=== PATIENT | male | born 1980 | race Caucasian/White ===

== ENCOUNTER → 2016-06-20 | Outpatient (CLI) | payer OTHER ==
--- NOTE | 2016-06-21 19:04 | DI ---
CT SCAN OF THE RIGHT WRIST, 06/20/2016 3:36 PM : Clinical History: Radial styloid fracture. Scans are obtained from the distal radius and ulna to the midshaft of the metacarpal bones without IV contrast. Sagittal and coronal reformatted images are also generated. The carpal bones are unremarkable except for abnormal a prominent widening between the scaphoid and l unate bones suggesting a tear or laxity of the scapholunate ligament. There is a longitudinally orien kim linear fracture through the radial styloid and this comprises approximately 15% of the total james cular surface. There is no "dye punch" fracture component, although there is a small second fracture component occupying less than 1% of the total articular surface and this is located between the radia l styloid and the remainder of the articular surface of the radius. The fracture courses through the scaphoid fossa of the distal radius. There is no step off visualized. READIN. There is a fracture through the radial styloid associated with 50% of the total articular surface . There is no step-off of the articular surfaces and there is no " punch" fracture component. Ther e is a very small fracture fragment on the articular surface lying between the styloid and the remain louis of the articular surface of the distal radius. This small fracture fragment comprises less than 1 % of the total articular surface. 2. There is widening of the space between the scaphoid and lunate bones and this is suggestive of ei ther laxity or a tear of the scapholunate ligament. 3D RENDERING OF CT SCANS OF THE RIGHT WRIST JOINT, 06/20/2016 3:36 PM: Clinical History: See above. Prior or Related Exam: None. The original raw data from the CT scans of this extremity are ported to the off-line [employer] on for 3D rendering of the bony structures. The 3-D rendering images are produced without the carpal bones or metacarpal bones. The ulna is josefa l. The radial styloid fracture component is well demonstrated along with the very small dorsally situ ated fracture fragment lying between the radial styloid and the remainder of the articular surface. READIN-D rendering of the bony surfaces demonstrate the radial styloid fracture nicely along with a small additional fracture component. There is no step-off of the articular surface and there is no " pun ch" fracture component.
== END ==
LOC: CT 15:30
PROVIDERS: ATTEND Physician Assistant
DX: S52.511A Displaced fracture of right radial styloid process, initial encounter for closed fracture (principal); V98.8XXA Other specified transport accidents, initial encounter; Y92.481 Parking lot as the place of occurrence of the external cause; Y93.H3 Activity, building and construction; Y99.0 Civilian activity done for income or pay
CPT/HCPCS: 73200; 76377

== ENCOUNTER 2016-06-27 08:46 | Day surgery (SDC) | payer OTHER ==
[2016-06-27] MEDS ORDERED: LIDOCAINE W/ SODIUM BICARB 0.5 ML SYR ONE (14:12)
[2016-06-27] MEDS ORDERED: Lactated Ringers 1,000 ML PRIMARY IV ONE (14:12)
[2016-06-27] MEDS ORDERED: ceFAZolin Inj 2gm (Premix) 50 ML IV ONE (14:12)
[2016-06-27] MEDS ORDERED: LIDOCAINE 2%/ EPI 1:200,000 - 20 ML VIAL ONE (16:52)
[2016-06-27] MEDS ORDERED: MIDAZOLAM 5 MG/1 ML ONE (16:52)
[2016-06-27] MEDS ORDERED: DEXAMETHASONE SOD PHOSPHATE 4 MG/1 ML VIAL ONE (16:52)
[2016-06-27] MEDS ORDERED: fentaNYL Inj 100 MCG/2 ML VIAL ONE (16:52)
[2016-06-27] MEDS ORDERED: MEPIVACAINE HCL/PF 20 MG/1 ML IV ONE (16:52)
--- NOTE | 2016-06-27 17:17 | CRNA.PROCE ---
Nerve Block Documentation - - Type of Nerve Block Used: Right Axillary Block Position for Nerve Block: Supine Moniters Used During Block: EKG, SPO2, NIBP Oxygen Sumpplented: Yes Sedation Used - Enter Amount in Comment Field: Midazolam (mg): Yes (3), Fentanyl (mcg): Yes (50) Skin Prep Used: ChloroPrep Draped: No Technique: Nerve Stimulator Nerve Block Needle Used: 40 mm ProBlk II Stimulation Hz: 2 Stimulation Staring mA: 1.2 Stimulation Ending mA: 0.6 Local Anesthetic - Enter Amt in Comment Field: 2 % Xylocaine with Epinephrine 1: 200,000 (mL): Yes (20ml), 2 % Mepivacaine (mL): Yes (20ml) Additives to Nerve Blocks: Dexamethasone (mL): Yes (8mg(2ml))
[2016-06-27] MEDS ORDERED: Sodium Chloride 0.9% vial 10 ML ONE (19:08)
[2016-06-27] MEDS ORDERED: BACITRACIN 50,000 UNIT VIAL IRRIG ONE (19:08)
[2016-06-27] MEDS ORDERED: KETAMINE 100 MG/1 ML - 5 ML ONE (19:32)
[2016-06-27] MEDS ORDERED: BUPivacaine Liposome/PF (Exparel) Inj 20ml vial INFIL ONE (19:40)
[2016-06-27] MEDS ORDERED: CALCIUM CARBONATE 500 MG (TUMS) CHEWABLE TABLET PO PRN (20:54)
[2016-06-27] MEDS ORDERED: ACETAMINOPHEN 325 MG TABLET PO PRN (20:54)
[2016-06-27] MEDS ORDERED: Prochlorperazine Tab 10 MG TAB PO PRN (20:54)
[2016-06-27] MEDS ORDERED: diphenhydrAMINE 25 MG CAPSULE PO PRN (20:54)
[2016-06-27] MEDS ORDERED: HYDROcodone-APAP 7.5 MG-325 MG TABLET PO PRN (20:54)
[2016-06-27] MEDS ORDERED: BISACODYL 10 MG SUPPOSITORY RECTAL PRN (20:54)
[2016-06-27] MEDS ORDERED: Ondansetron ODT Tab 8 MG TAB PO PRN (20:54)
[2016-06-27] MEDS ORDERED: ONDANSETRON 4 MG/2 ML VIAL IVP PRN (20:54)
[2016-06-27] MEDS ORDERED: BISACODYL 5 MG TABLET PO PRN (20:54)
[2016-06-27] MEDS ORDERED: MORPHINE SULFATE 2 MG/1 ML IVP PRN (20:54)
[2016-06-27] MEDS ORDERED: IBUPROFEN 400 MG TABLET PO PRN (20:54)
[2016-06-27] MEDS ORDERED: MAG HYDROX/AL HYDROX/SIMETH 30 ML SUSP PO PRN (20:54)
[2016-06-27] MEDS ORDERED: NORMAL SALINE 10 ML SYRINGE FLUSH IVP PRN (20:54)
[2016-06-27] MEDS ORDERED: Lactated Ringers 1,000 ML PRIMARY IV SCH (21:00)
[2016-06-27] MEDS ORDERED: KETOROLAC 30 MG/1 ML VIAL ONE (21:13)
[2016-06-27] MEDS ORDERED: KETOROLAC 15 MG/1 ML VIAL IVP ONE (21:22)
[2016-06-27 21:33] VITALS: RESP 14
[2016-06-27] MEDS ORDERED: HYDROcodone-APAP 7.5 MG-325 MG TABLET PO ONE (21:51)
[2016-06-27 22:07] VITALS: TEMP 97.2
== END 2016-06-27 21:55 | disposition home or self-care (01) ==
LOC: SDSC 08:46
PROVIDERS: ATTEND Orthopaedic Surgery
DX: S52.511A Displaced fracture of right radial styloid process, initial encounter for closed fracture (principal); W23.0XXA Caught, crushed, jammed, or pinched between moving objects, initial encounter
CPT/HCPCS: 25608; 76001; A4216; C9290; J0690; J1885; J3010; J0670; J1100; J2250; J7120